=== PATIENT | female | born 1945 | race Caucasian/White ===

== ENCOUNTER 2017-01-15 05:29 | Inpatient (IN) | payer MEDICARE, OTHER ==
[~2017-01-15 05:29] MED LIST: ACETADRYL 500-1 EACH PO; ACETAMINOPHEN650 M3 PO; ADVAIR 1001 DISK W/D IH; ALBUTEROL SULF8.5 G1 IH; ALBUTEROL SULF8.5 GM IH; ALBUTEROL0.63 MG/1 INH; ALBUTEROL0.83 MG/ML INH; ALDACTONE25 M1 PO; ANTIVERT25 MG PO; ASMANEX0 IH; ASPIRIN EC81 MG PO; ASPIRIN81 M1 PO; ATIVAN0.5 MG PO; AVANDAMET 2 MG/1 TAB PO; AVAPRO300 MG; B122500 MCG SL; BACTRIM DS TABL1 TAB PO; BYSTOLIC5 M1 PO; CALCIUM + D T1 UDTAB PO; CALCIUM CITRATE; CELEBREX200 MG; CLARITIN10 M6 PO; COREG6.25 M1 PO; COREG6.25 MG PO; COZAAR100 M1 PO; CYMBALTA30 M1 PO; DIOVAN160 M PO; DULOXETINE HCL30 M1 PO; FLEXERIL10 MG PO; FLONASE ALLERG9.9 ML; GLUCOPHAGE500 MG PO; IRON325 M1 PO; JANUVIA100 M1 PO; LEVOFLOXACIN500 MG PO; LORATADINE10 M2 PO; LOVASTATIN40 M2 PO; LOVASTATIN40 MG PO; MUCINEX1200 MG/BO PO; OMEPRAZOLE40 M2 PO; PAIN RELIEF PO; PAXIL10 MG PO; PAXIL20 MG PO; PERCOCET 5-3251 EACH PO; PERCOCET 7.5/321 TA1 PO; PLAVIX; PLAVIX75 M1 PO; PLAVIX75 MG; PLAVIX75 MG PO; PREDNISONE10 MG PO; PRILOSEC OTC20 MG PO; PROAIR; PROAIR HFA8.5 GM; PROZAC20 MG PO; RITALIN20 MG PO; SENOKOT-S TABLE1 TAB PO; SINGULAIR10 M1 PO; SINGULAIR10 MG PO; TESSALON PO; TRAMADOL HCL50 MG PO; TYLENOL EXTRA500 M1 PO; TYLENOL325 MG PO; ULTRAM50 M1 PO; VITAMIN B-12250 MC2 PO; VITAMIN D50000 UNIT PO; XANAX1 MG PO; XANAX2 MG PO; ZITHROMAX250 MG PO; ZITHROMAX250MG Z-PAK PO; ZOCOR10 M1 PO; [UNRECOGNIZED DRUG - CODE] PO; [UNRECOGNIZED DRUG - OTHER] PO
[2017-01-16 05:30] LABS: BASO % 0.1 % (0-2); HCT-HEMATOCRIT 35.2 % (34.0-49.0); HGB-HEMOGLOBIN 11.1 gm/dl (12.0-15.5); IMMATURE GRANULOCYTES ABSOLUTE 0.04 tho/cmm (0-0.03); IMMATURE GRANULOCYTES PERCENT 0.3 % (0-0.3); LYMPH % 11.9 % (20-45); LYMPH ABSOLUTE COUNT 1.5 tho/cmm (0.8-4.5); MCH (MEAN CORPUSCULAR HGB) 30.2 pg (28.0-32.0); MCHC MEAN CORPUSCULAR HGB CONC 31.5 % (32.0-36.0); MCV (MEAN CELL VOLUME) 95.7 fl (82.0-96.0); MEAN PLATELET VOLUME 9.4 cmc (9.4-12.4); MONO % 11.8 % (0-12); MONOCYTE ABSOLUTE COUNT 1.5 tho/cmm (0.0-1.2); NEUTROPHIL ABSOLUTE COUNT 9.4 tho/cmm (1.6-8.0); NEUTROPHIL-AUTOMATED 9.4 tho/cmm (1.6-8.0); NEUTROPHILS % 75.9 % (40-80); PLATELET COUNT 231 tho/cmm (150-450); RED BLOOD COUNT 3.68 mil/cmm (4.00-5.20); RED CELL DISTRIBUTION WIDTH 13.8 % (12.4-16.4); WHITE BLOOD COUNT 12.3 tho/cmm (4.0-10.0)
[2017-01-16 05:44] LABS: ANION GAP 14 mmol/L (0-20); BLOOD UREA NITROGEN 22 mg/dl (6-24); CALCIUM 8.6 mg/dl (8.5-10.5); CARBON DIOXIDE-VENOUS 27 mmol/L (22-32); CHLORIDE 100 mmol/l (96-110); GLUCOSE 121 mg/dL (70-110); POTASSIUM 5.2 mmol/L (3.7-5.1); SODIUM 136 mmol/L (135-145); eGFR VALUE FOR BLACK 66 mL/Min
[2017-01-18 05:18] LABS: BASO % 0.1 % (0-2); EOS % 2.4 % (0-7); EOSINOPHIL ABSOLUTE COUNT 0.2 tho/cmm (0.0-0.7); HCT-HEMATOCRIT 30.9 % (34.0-49.0); HGB-HEMOGLOBIN 9.9 gm/dl (12.0-15.5); IMMATURE GRANULOCYTES ABSOLUTE 0.03 tho/cmm (0-0.03); IMMATURE GRANULOCYTES PERCENT 0.3 % (0-0.3); LYMPH % 16.5 % (20-45); LYMPH ABSOLUTE COUNT 1.6 tho/cmm (0.8-4.5); MCH (MEAN CORPUSCULAR HGB) 30.4 pg (28.0-32.0); MCV (MEAN CELL VOLUME) 94.8 fl (82.0-96.0); MEAN PLATELET VOLUME 9.9 cmc (9.4-12.4); MONO % 16.2 % (0-12); MONOCYTE ABSOLUTE COUNT 1.6 tho/cmm (0.0-1.2); NEUTROPHIL ABSOLUTE COUNT 6.3 tho/cmm (1.6-8.0); NEUTROPHIL-AUTOMATED 6.3 tho/cmm (1.6-8.0); NEUTROPHILS % 64.5 % (40-80); PLATELET COUNT 182 tho/cmm (150-450); RED BLOOD COUNT 3.26 mil/cmm (4.00-5.20); RED CELL DISTRIBUTION WIDTH 13.7 % (12.4-16.4); WHITE BLOOD COUNT 9.8 tho/cmm (4.0-10.0)
[2017-01-18 05:39] LABS: ANION GAP 10 mmol/L (0-20); BLOOD UREA NITROGEN 17 mg/dl (6-24); CALCIUM 8.3 mg/dl (8.5-10.5); CARBON DIOXIDE-VENOUS 29 mmol/L (22-32); CHLORIDE 101 mmol/l (96-110); CREATININE 0.67 mg/dl (0.50-1.10); GLUCOSE 121 mg/dL (70-110); SODIUM 136 mmol/L (135-145); eGFR VALUE FOR BLACK >90 mL/Min
[2017-01-18 05:42] LABS: TSH-THYROID STIMULATING HORM. 1.48 uIU/ml (0.40-3.80)
[2017-01-18 05:53] LABS: POTASSIUM 4.3 mmol/L (3.7-5.1)
[2017-01-19] MEDS ORDERED: ROXICODONE5 M2 PO (11:36)
[2017-01-19] MEDS ORDERED: ULTRAM50 M1 PO (11:36)
== END 2017-01-19 13:55 | DRG 470 ==
LOC: SHSC 05:29 → ORE 09:02 → PACU 12:29 → 5EA 14:05
PROVIDERS: Internal Medicine; ADMIT Orthopaedic Surgery Orthopaedic Surgery of the Spine
PROC: 0SR9029 Replacement of Right Hip Joint with Metal on Polyethylene Synthetic Substitute, Cemented, Open Approach (ICD-10-PCS; principal; 2017-01-15)
DX: M16.11 Unilateral primary osteoarthritis, right hip (principal); E11.9 Type 2 diabetes mellitus without complications; I10 Essential (primary) hypertension; G47.33 Obstructive sleep apnea (adult) (pediatric); K21.9 Gastro-esophageal reflux disease without esophagitis; E78.5 Hyperlipidemia, unspecified; I25.10 Atherosclerotic heart disease of native coronary artery without angina pectoris
CPT/HCPCS: C1713; C1776; C8929; J0171; J0690; J1170; J2270; J2405; J2795; J3010; J7030